=== PATIENT | female | born 1975 | race Hispanic/Latino ===

== ENCOUNTER 2025-06-27 08:57 | Emergency (ER) | payer BC ==
[~2025-06-27] VITALS: Ht 162.6 cm; Wt 83.0 kg
[2025-06-27 09:39] VITALS: PULSE 64; RESP 16; TEMP 97.3
[2025-06-27] MEDS: CYCLOBENZAPRINE HCL 10 MG TAB PO ONE (10:23)
[2025-06-27] MEDS: KETOROLAC TROMETHAMINE 60 MG/2 ML VIAL IM ONE (10:24)
[2025-06-27] MEDS ORDERED: CYCLOBENZAPRINE10 MG PO (11:47)
[2025-06-27 12:03] VITALS: BP 137/74; PULSE 74; RESP 17; O2SAT 100
== END 2025-06-27 12:10 | disposition home or self-care (01) ==
LOC: ER 09:33
DX: M54.50 Low back pain, unspecified (principal); W01.0XXA Fall on same level from slipping, tripping and stumbling without subsequent striking against object, initial encounter; Y93.01 Activity, walking, marching and hiking; Y92.89 Other specified places as the place of occurrence of the external cause; E03.9 Hypothyroidism, unspecified
CPT/HCPCS: 72110; 73502; 99283; J1885